=== PATIENT | female | born 1985 | race African-American/Black ===

== ENCOUNTER 2017-02-13 09:56 | Emergency (ER) | payer SELFPAY ==
[~2017-02-13] VITALS: Ht 157.5 cm; Wt 58.0 kg
[2017-02-13 09:58] VITALS: BP 123/66; PULSE 85; RESP 16; TEMP 98; O2SAT 99
--- NOTE | 2017-02-13 10:24 | PD ---
HPI Chief Complaint: Medical Clearance Time Seen by Provider: 10:14 Travel History International Travel<30 days: No Contact w/Intl Traveler<30days: No Traveled to known affect area: No History of Present Illness HPI Patient comes in complaining of possible foreign body in her left upper arm. Patient states that she believes it might be part of a needle from a shot that she received as a child that is causing her some discomfort. Patient has pain is a sharp stabbing pain is worse when she lays on her arm and radiates up and down her arm. Pain improves after moving her arm around a little bit. Patient states there is always been discoloration in the area however began having pain 2 weeks ago. Patient denies doing anything for the pain. Denies any fevers, chest pain, shortness breath, IV drug use, , or known injury. PFSH Past Medical History Medical History: Denies Significant Hx Tetanus Vaccination: < 5 Years Influenza Vaccination: Yes ?: Not LMP: 02/10/17 Past Surgical History Surgical History: No Previous Surgery Social History Alcohol Use: No Tobacco Use: No Substance Use: No Review of Systems Except as stated in HPI: all other systems reviewed are Neg Physical Exam Narrative GENERAL: Well-developed, well nourished, in no acute distress, and non-ill appearing. SKIN: Focused skin assessment warm and dry. Some hyperpigmentation inferior left deltoid patient states her pain is. There is no crepitus, erythema, induration, or fluctuation. No drainage. No obvious foreign body. HEAD: Atraumatic. Normocephalic. EYES: Pupils equal and round. EOMI. No scleral icterus. No injection or drainage. ENT: No nasal bleeding or discharge. Mucous membranes pink and moist. NECK: Trachea midline. Supple. No nuclear rigidity. RESPIRATORY: No accessory muscle use. No respiratory distress. MUSCULOSKELETAL: No obvious deformities. No clubbing. No cyanosis. No edema. Full range of motion. NEUROLOGICAL: Awake and alert. No obvious cranial nerve deficits. Motor grossly within normal limits. Normal speech. PSYCHIATRIC: Appropriate mood and affect; insight and judgment normal. Data Data Last Documented VS Vital Signs Date Time Temp Pulse Resp B/P (MAP) Pulse Ox O2 Delivery O2 Flow Rate FiO2 02/13/17 11:48 02/13/17 09:58 98.0 85 16 99 Room Air Orders Orders Humerus (Min 2vws) (02/13/17 ) Ed Discharge Order (02/13/17 11:43) [facility] Medical Decision Making Medical Screen Exam Complete: Yes Emergency Medical Condition: Yes Differential Diagnosis Retained foreign body, musculoskeletal pain, tumor Narrative Course There is no clinical evidence to suspect bony injury by exam. There is no evidence of cellulitis, abscess, gangrene, or other infectious process. Radiographic examination revealed no fracture seen at this time. The patient has full range of motion on active and passive motions. There is no significant edema. There is no proximal or distal joint effusion. The distal extremity appears neurovascularly intact, without evidence of neurovascular injury nor compartment syndrome. Tendon exam also was intact. The patient was discharged and given warnings for vascular compromise. The patient is to follow up with their regular physician or Orthopedics. The patient agrees with plan. Patient in no obvious distress upon re-evaluation. All pertinent Radiology result(s) discussed with patient. Any questions/concerns in reference to patient diagnosis/condition discussed and clarified prior to patient's discharge. Reinforced sheer importance of close follow up with patient's primary physician or primary care clinic. Instructed patient to return to ED immediately, if symptoms return/worsen. Patient showed understanding of above instructions. Further instructions and recommendations were detailed in discharge paperwork. Patient ambulated without difficulty out of ED at discharge. Diagnosis Primary Impression: Left upper arm pain Ruled Out: Foreign body (FB) in soft tissue Referrals: [facility] Patient Instructions: Arm Pain (ED), General Instructions, Musculoskeletal Pain (ED) Additional Instructions: Follow-up with your primary care physician in 3-5 days for reevaluation. Use [id number] Tylenol and/or ibuprofen as needed for pain. Follow instructions on the packaging. Apply ice to affected area times previously for pain. Return to the emergency department if symptoms get worse. Disposition: 01 DISCHARGE HOME Condition: Stable Lopez Jaime Feb 13, 2017 10:24
--- NOTE | 2017-02-13 11:40 | RADRPT ---
EXAM DATE/TIME: 02/13/2017 11:04 [facility] COMPARISON: No previous studies available for comparison. INDICATIONS : Left arm pain after injection. MEDICAL HISTORY : None. SURGICAL HISTORY : None. ENCOUNTER: Initial ACUITY: 1 month PAIN SCORE: 10/10 LOCATION: Left proximal humerus. FINDINGS: Two view examination of the left humerus demonstrates no evidence of fracture or dislocation. Bony m ineralization is normal. The soft tissue structures are intact. No evidence of foreign body. CONCLUSION: No acute disease or evidence of foreign body.. Chris Angel MD on February 13, 2017 at 11:38 Board Certified Radiologist. This report was verified electronically.
== END 2017-02-13 11:49 | disposition home or self-care (01) ==
LOC: NEPK 09:56
DX: M79.622 Pain in left upper arm (principal)
CPT/HCPCS: 73060; 99283